=== PATIENT | female | born 1950 | race Caucasian/White ===

== ENCOUNTER → 2018-03-10 | Outpatient (CLI) | payer MEDICARE, OTHER | END | disposition home or self-care (01) | LOC: KCIC MRI 09:48 | DX: S50.02XS Contusion of left elbow, sequela (principal); X58.XXXS Exposure to other specified factors, sequela | CPT/HCPCS: 73221 ==

== ENCOUNTER → 2020-06-02 | Outpatient (CLI) | payer MEDICARE, OTHER ==
--- NOTE | 2020-06-02 14:32 | RAD ---
MRI Lumbar Spine without contrast History: Low back pain for about a week, fall Technique: Multiplanar, multi sequential noncontrast MR imaging was performed of the lumbar spine. Comparison: None Findings: Lumbar vertebral body stature is overall preserved. There is negligible anterior spondylolisthesis at L4-5. There is advanced degenerative disc disease at L3-4 and L4-5, minimally at L2-L3. Conus terminates at T12-L1. Minimal edema of the anterior superior corner of L1 is likely reactive/degenerative in etiology. There is a small focus of T2 hyperintense signal of the right kidney about 0.6 cm, more likely a cyst. There is very mild lumbar levoscoliosis. There is nonspecific edema of the posterior subcutaneous fat of the lower back. L1-L2: Neural foramina and spinal canal are adequate. L2-L3: Spinal canal and neural foramina are adequate. There is minimal buckling of the ligamentum flavum. L3-L4: There is minimal disc osteophyte complex. There is moderate facet hypertrophic change and buckling of the ligamentum flavum. There is mild left and fairly severe distal right neural foramina compromise, narrowing on the right from disc osteophyte complex and facet with contact exiting right L3 nerve root inferiorly and posteriorly. There is mild narrowing of the far right lateral recess. L4-L5: There is minimal disc osteophyte complex. There is left laminectomy defect. There is moderate facet hypertrophic change. There is mild indentation upon the posterior thecal sac without significant spinal stenosis. There is moderate narrowing of the right neural foramen and fairly severe narrowing on the left, contact of the exiting L4 nerve roots bilaterally greater on the left. Neural foramina compromise is due to disc osteophyte complex and facets. L5-S1: There is moderate bilateral facet hypertrophic change and mild buckling of the ligamentum flavum. There is mild narrowing of the far lateral recesses from posteriorly greater on the left, central canal adequate. Neural foramina are adequate. Impression: 1. There is severe left and moderate right L4-5 neural foramina compromise with contact of the exiting L4 nerve roots bilaterally, also fairly severe narrowing on the right at L3-4. 2. There is advanced degenerative disc disease at L3-4 and L4-5 and minimally at L2-3. 3. There is no significant lumbar spinal stenosis, mild narrowing of the far right lateral recess at L3-4. 4. There is minimal grade 1 anterior spondylolisthesis at L4-5, multilevel facet degenerative change. Electronically signed by: Ray Whitaker MD (06/02/2020 2:29 PM) [id number]
== END | disposition home or self-care (01) ==
LOC: MRI 12:57
PROVIDERS: ATTEND Family Medicine
DX: M47.27 Other spondylosis with radiculopathy, lumbosacral region (principal); M51.36 Other intervertebral disc degeneration, lumbar region; M43.16 Spondylolisthesis, lumbar region; M41.86 Other forms of scoliosis, lumbar region; M25.78 Osteophyte, vertebrae; M48.061 Spinal stenosis, lumbar region without neurogenic claudication
CPT/HCPCS: 72148

== ENCOUNTER → 2020-06-14 | Outpatient (CLI) | payer MEDICARE, OTHER ==
[~2020-06-14] MED LIST: ALBU2.5V8 IH; CALC-31 PO; CARV25TA PO; CRESTOR5 MG PO; DRON400T PO; DULO30CA2 PO; FLUT16SP NS; FLUT1DIS IH; MULT1CAP33 PO; POTA10TA12 PO; RIVA20TA2 PO; TRAM50TA PO; allergy shots
--- NOTE | 2020-06-14 11:47 | PDOC2 ---
INITIAL PAIN CONSULT DATE OF SERVICE: DOS: DATE: 06/14/20 TIME: 11:37 CHIEF COMPLAINT: Chief Complaint: Low back and bilateral lower extremity pain HISTORY OF PRESENT ILLNESS: 70-year-old female presents history of pain low back bilateral lower extremities after a fall at a [employer] May 25, 2000. Patient reports she tripped over a rug after coming out of the bathroom there did not have any pain in her low back or legs prior to this at least nothing consistently and the pain is been significant since this time. Patient did get a MRI scan of the lumbar spine showing severe left and moderate right L4-5 neural foraminal compromise with contact of the exiting L4 nerve roots bilaterally also is fairly severe narrowing of the right L3-4 with advanced degenerative disc disease L3-4 and L4- 5 minimally at L2-3. Patient reports is getting worse now with walking standing changing positions better with sitting or laying down but wakes her from sleep release once twice a night patient reports does not affect her bowel or bladder control does affect her ability to walk she not use any assistive devices but she holds onto guardrails or handrails with her when she is with him. Patient has tried tramadol as well as Cymbalta both of which do decrease the pain but only by about 10 to 20% patient not had any formal physical therapies at this point, but is doing some stretching and strengthening on her own and exercises with walking daily but is becoming more difficult secondary to the pain. Patient reports her disability rating from 0-10 10 being the worst is a 6 with family home responsibilities recreation social activity and sexual behavior 9 with occupational behaviors for self-care and to with life support activities. PAST MEDICAL HISTORY: PMH: Atrial fibrillation, hyperlipidemia, hypertension, arthritis, degenerative joint disease, gout PREVIOUS SURGERIES: Past Surgical Hx: Ectomy 1964 left elbow surgery 2016 lumbar laminectomy 2003 gastric bypass 2018, left total knee arthroplasty 2006 right total knee arthroplasty 2007 CURRENT MEDICATIONS: Current Meds: Active Scripts Medications Dose Route/Sig Max Daily Dose Days Date Category Dose Instructions [allergy shots] MONTHLY 06/14/20 Reported Proair Hfa (Albuterol Sulfate) 8.5 Gm Hfa.aer.ad 2 Puff IH PRN Q4-6HRS PRN 21 06/14/20 Reported Fluticasone Propionate Nasal [place] (Fluticasone Propionate) 16 Gm [place].susp 2 [place] NS DAILY PRN 06/14/20 Reported Advair 100-50 Diskus (Fluticasone/Salmeterol) 1 Each Disk.w.dev 1 Inh IH BID 06/14/20 Reported Xarelto (Rivaroxaban) 20 Mg Tablet 1 Tab PO DAILY 30 06/14/20 Reported with food Tramadol Hcl 50 Mg Tablet 50 Mg PO BID PRN 06/14/20 Reported Crestor (Rosuvastatin Calcium) 5 Mg Tablet 20 Mg PO HS 06/14/20 Reported Klor-Con 10 (Potassium Chloride) 10 Meq Tablet.er 1 Tab PO DAILY 30 06/14/20 Reported Multaq (Dronedarone Hcl) 400 Mg Tablet 1 Tab PO BID 06/14/20 Reported Cymbalta (Duloxetine Hcl) 30 Mg Capsule.dr 30 Mg PO BID 06/14/20 Reported Coreg (Carvedilol) 25 Mg Tablet 25 Mg PO BIDWMEALS 06/14/20 Reported Calcium 500 + D Tablet (Calcium Carbonate/Vitamin D3) 1 Each Tablet 1 Tab PO BID 30 06/14/20 Reported Bariatric Mv-Iron 45 mg Cap (Multivit-Min/Iron/Folic Acid/K) 1 Each Capsule 1 Each PO DAILY 06/14/20 Reported ALLERGIES; Allergies: Coded Allergies: bee venom protein (honey bee) (Verified Allergy, Severe, Anaphylaxis, 06/14/20) FAMILY HISTORY: Family Hx: Cancer, heart disease SOCIAL HISTORY: Social Hx: Next alcohol once or twice a month does not smoke not use any illegal illicit or recreational drugs is lives with her spouse has no children lives at home and is currently retired REVIEW OF SYSTEMS: ROS: Positive for those items mentioned in history of present illness, all systems are reviewed, otherwise negative, is complete full and well-documented on patient's chart PHYSICAL EXAM: VS: Blood pressure is 141/70 pulse 56 respiration 16 temperature is 98.7 F height is 5 foot 6 inches weight is 230 pounds PE: PHYSICAL EXAMINATION: GENERAL: The patient is awake, alert, oriented, appropriate, very pleasant demeanor HEENT: Shows normocephalic, atraumatic. Extraocular movements are intact and symmetrical. Oral cavity: Mucous membranes moist and pink. Dentition is intact. NECK: Shows anterior throat supple without palpable lymphadenopathy noted. Swallow reflex symmetrical. CHEST: Shows normal on inspection. Breath sounds are clear bilaterally, no r ales rhonchi or wheezes auscultated. HEART: Shows S1, S2 clear. No murmurs auscultated. ABDOMEN: Soft, nontender, nondistended. No palpable organomegaly is noted. No rebound or guarding demonstrated. BACK: Shows spine grossly in the midline. Normal-appearing cervical lordotic curvature. There is slightly increased thoracic kyphosis, some minor flattening of the lumbar lordotic curvature. Lumbar paraspinous muscles show symmetrical on inspection, on palpation shows some moderate tenderness diffusely throughout the upper, middle and lower distribution of the paraspinous muscles bilaterally and also into the lower thoracic paraspinous musculature, firm and tender, but without specific trigger points, without radiation of pain. The patient has good rotational motion of the lumbar spine, both laterally as well as extension and flexion without significant difficulty. No tenderness over the spinous processes, sacrum or sacroiliac regions. EXTREMITIES: Lower extremities show deep tendon reflexes 1+ in the patellar and tendo calcaneus tendons. Motor exam is 4 on a scale of 5 with right dorsiflexion, extension, quadriceps and hamstring flexion and 4/5 on the left. Peripheral pulses are 1+ posterior tibial. No peripheral edema is noted bilaterally. Lower extremities are warm and dry to touch, equal in color and appearance. Straight leg raise noted to be negative bilaterally. Gaenslen's and Jairo's maneuvers are [] as well. The patient is able to stand, stand on her toes without significant difficulty or loss of balance walks with a slight antalgic gait but does not appear to favor the right or left lower extremity significantly and is using no assistive devices to ambulate.. SKIN: Shows warm and dry, good turgor. No edema. No sores, rashes or bruising throughout. IMPRESSION: Impression: 70-year-old female with three-week history status post fall with low back and bilateral lower extremity pain MRI scan lumbar spine as noted Hypertension Arthritis Atrial fibrillation Plan: Options discussed with the patient including conservative medical management physical therapies interventional techniques. Patient would like to pursue interventional techniques we discussed a lumbar epidural steroid injection using description as well as anatomical model to describe the procedure. We will wait for preauthorization with her route driver salesperson to hold her Xarelto for 3 days prior to injection. If deemed safe and appropriate will have her hold this and return for lumbar epidurals or injection at that time. Patient will continue take her Xarelto currently until word from her route driver salesperson if okay to hold. MAJOR BUENO MD Jun 14, 2020 11:47
== END | disposition home or self-care (01) ==
LOC: PNCL 10:13
PROVIDERS: ATTEND Anesthesiology
DX: M54.5 Low back pain (principal); M79.662 Pain in left lower leg; M79.661 Pain in right lower leg; I48.91 Unspecified atrial fibrillation; E78.5 Hyperlipidemia, unspecified; I10 Essential (primary) hypertension; M10.9 Gout, unspecified; M19.90 Unspecified osteoarthritis, unspecified site; Z98.890 Other specified postprocedural states; Z79.899 Other long term (current) drug therapy; Z88.8 Allergy status to other drugs, medicaments and biological substances
CPT/HCPCS: G0463

== ENCOUNTER → 2020-06-20 | Outpatient (CLI) | payer MEDICARE, OTHER ==
[~2020-06-20] MED LIST changes: +IOHEXOL 180 MG/ML 10 ML VIAL. ONE; +methylPREDNISolone ACETATE 40 MG/ML VIAL. ONE; +methylPREDNISolone ACETATE 80 MG/ML VIAL. ONE
--- NOTE | 2020-06-20 13:55 | PDOC ---
Progress Note - Pain Clinic Date of Service: DOS: DATE: 06/20/20 TIME: 13:52 Diagnosis: Dx: Lumbar radiculopathy with lumbar degenerative disease and lumbar postlaminectomy syndrome History or Present Illness: HPI: 70-year-old female returns follow-up status post initial evaluation and clearance with her resident care manager to hold her Xarelto she is been off of it now for about 5 days and still reports pain in the low back and into the bilateral lower extremities patient reports no new motor or sensory deficits no new bowel bladder incontinence she has not had any more falls since her last visit reports is still in the low back bilateral lower extremities posterior gluteus posterior lateral thigh lateral anterior thighs worse when standing from a seated position and changing positions patient rates her pain as a 10 on scale 10 is worse over the past week 8 on average 7 its least is an 8 today patient describes as aching sharp shooting on and off in intensity again worse with changing positions and standing. Patient reports no new motor or sensory deficits no new bowel or bladder incontinence or other complaints. Physical Exam: VS: Blood pressure is 123/70 pulse 58 respirations are 18 temperature 98.4 F height is 5 foot 6 inches weight is 226 pounds PE: PHYSICAL EXAMINATION: GENERAL: The patient is awake, alert, oriented, appropriate, very pleasant d emeanor HEENT: Shows normocephalic, atraumatic. Extraocular movements are intact and symmetrical. Oral cavity: Mucous membranes moist and pink. Dentition is intact. NECK: Shows anterior throat supple without palpable lymphadenopathy noted. Swallow reflex symmetrical. CHEST: Shows normal on inspection. Breath sounds are clear bilaterally. HEART: Shows S1, S2 clear. No murmurs auscultated. ABDOMEN: Soft, nontender, nondistended, obese. No palpable organomegaly is noted. No rebound or guarding demonstrated. BACK: Shows spine grossly in the midline. Normal-appearing cervical lordotic curvature. There is slightly increased thoracic kyphosis, some minor flattening of the lumbar lordotic curvature. Lumbar paraspinous muscles show symmetrical on inspection, on palpation shows some moderate tenderness diffusely throughout the upper, middle and lower distribution of the paraspinous muscles bilaterally without specific trigger points, and without radiation of pain. The patient has good rotational motion of the lumbar spine, both laterally as well as extension and flexion without significant difficulty. No tenderness over the spinous processes, sacrum or sacroiliac regions. EXTREMITIES: Lower extremities show deep tendon reflexes 1+ in the patellar and tendo calcaneus tendons. Motor exam is 4 on a scale of 5 with right dorsiflexion, extension, quadriceps and hamstring flexion and 4/5 on the left. Peripheral pulses are 1+ posterior tibial. No peripheral edema is noted bilaterally. Lower extremities are warm and dry to touch, equal in color and appearance. SKIN: Shows warm and dry, good turgor. No edema. No sores, rashes or bruising throughout. Procedure: Procedure: Options were discussed with the patient. Patient's old chart was reviewed as her current medication regimen updated current review of systems updated today as well. We will proceed with a lumbar epidural steroid injection today with fluoroscopic guidance. Risks were discussed including but not limited to: Blee ding, infection, possibility of epidural hematoma and subsequent neurological compromise, dural puncture, headaches, spinal cord and/or nerve damage, side effects of steroid medication, and poor results regarding pain control. Patient understands wished to proceed. Patient will return to clinic approximate 2 weeks for follow-up was counseled as return appointment activity level and side effects to be aware. Patient will restart her Xarelto this evening Medication Injected: Med Injected: Procedure is lumbar epidural steroid injection under local anesthetic using sterile prep and drape at the L4-5 level using C-arm fluoroscopic guidance in both AP and lateral views medications injected is 120 mg Depo-Medrol + 10 mL preservative-free normal saline and 2 mL contrast- condition at discharge is stable patient tolerated procedure well had no complications. Condition at Discharge: Condition at Discharge: Condition at discharge stable patient tolerated the procedure well had no complications. MAJOR BUENO MD Jun 20, 2020 13:55
== END | disposition home or self-care (01) ==
LOC: PNCL 12:54
PROVIDERS: ATTEND Anesthesiology
DX: M51.16 Intervertebral disc disorders with radiculopathy, lumbar region (principal); M96.1 Postlaminectomy syndrome, not elsewhere classified; I10 Essential (primary) hypertension; E78.5 Hyperlipidemia, unspecified; M10.9 Gout, unspecified; Z79.899 Other long term (current) drug therapy
CPT/HCPCS: 62323; J1030; J1040; Q9965

== ENCOUNTER → 2020-07-11 | Outpatient (CLI) | payer MEDICARE, OTHER ==
--- NOTE | 2020-07-11 13:42 | PDOC ---
Progress Note - Pain Clinic Date of Service: DOS: DATE: 07/11/20 TIME: 13:39 Diagnosis: Dx: Lumbar radiculopathy with lumbar degenerative disc disease and lumbar postlaminectomy syndrome History or Present Illness: HPI: 70-year-old female returns follow-up status post lumbar epidural straight injection x1. Patient reports about 50% improvement in the low back and right lower extremity pain but still some pain on the right side moved up slightly from her was on her last visit. Patient reports her pain is a 9 on scale 10 is worse over the past week 9 on average 7 its least is a 9 today patient which is pinching stabbing aching and sharp shooting in the right leg posterior gluteus posterior lateral thigh lateral anterior thigh but mostly in the low back patient reports worse with walking standing change positions better with sitting or laying down does not awaken her from sleep at night initially she is doing better with walking household activities and traveling with greater ease and comfort but now the pain is returning over the past 4 to 5 days patient reports no new motor or sensory deficits no new bowel or bladder incontinence or other complaints. Physical Exam: VS: Blood pressure 138/72 pulse 58 respirations 16 temperature 97.8 F weight is 221 pounds PE: PHYSICAL EXAMINATION: GENERAL: The patient is awake, alert, oriented, appropriate, very pleasant demeanor HEENT: Shows normocephalic, atraumatic. Extraocular movements are intact and symmetrical. NECK: Shows anterior throat supple without palpable lymphadenopathy noted. Swallow reflex symmetrical. CHEST: Shows normal on inspection. Breath sounds are clear bilaterally, no rales rhonchi or wheezes. HEART: Shows S1, S2 clear. No murmurs auscultated. ABDOMEN: Soft, nontender, nondistended, obese. No palpable organomegaly is noted. No rebound or guarding demonstrated. BACK: Shows spine grossly in the midline. Normal-appearing cervical lordotic curvature. There is slightly increased thoracic kyphosis, some minor flattening of the lumbar lordotic curvature. Lumbar paraspinous muscles show symmetrical on inspection, on palpation shows some moderate tenderness diffusely throughout the upper, middle and lower distribution of the paraspinous muscles bilaterally, without specific trigger points, without radiation of pain. The patient has good rotational motion of the lumbar spine, both laterally as well as extension and flexion without significant difficulty. No tenderness over the spinous processes, sacrum or sacroiliac regions. EXTREMITIES: Lower extremities show deep tendon reflexes 1+ in the patellar and tendo calcaneus tendons. Motor exam is 4 on a scale of 5 with right dorsiflexion, extension, quadriceps and hamstring flexion and 4/5 on the left. Peripheral pulses are 1+ posterior tibial. No peripheral edema is noted bilaterally. Lower extremities are warm and dry to touch, equal in color and appearance. SKIN: Shows warm and dry, good turgor. No edema. No sores, rashes or bruising throughout. Procedure: Procedure: Discussed with the patient. Patient will chart reviews her current medication regimen updated current review of systems updated today as well. We will proceed with a second in the series lumbar epidural steroid injection today with fluoroscopic guidance. Risks were discussed including but not limited to: Bleeding, infection, possibility of epidural hematoma and subsequent neurological compromise, dural puncture, headaches, spinal cord and/or nerve damage, side effects of steroid medication, and poor results regarding pain control. Patient understands wished to proceed. Patient will return to the clinic in approximate 2 weeks for follow-up with calcis return appointment activity level and side effects to be aware of. Medication Injected: Med Injected: Procedure is lumbar epidural steroid injection under local anesthetic using sterile prep and drape at the L4-5 level using C-arm fluoroscopic guidance in both AP and lateral views medications injected is 120 mg Depo-Medrol + 10 mL preservative-free normal saline and 2 mL contrast- condition at discharge is stable patient tolerated procedure well had no complications. Condition at Discharge: Condition at Discharge: Condition at discharge is stable patient tolerated the procedure well had no complications. MAJOR BUENO MD Jul 11, 2020 13:42
== END ==
LOC: PNCL 13:10
PROVIDERS: ATTEND Anesthesiology
DX: M51.16 Intervertebral disc disorders with radiculopathy, lumbar region (principal); M96.1 Postlaminectomy syndrome, not elsewhere classified; Z88.8 Allergy status to other drugs, medicaments and biological substances; Z79.899 Other long term (current) drug therapy
CPT/HCPCS: 62323; J1030; J1040; Q9965